=== PATIENT | female | born 1960 | race Caucasian/White ===

== ENCOUNTER 2019-05-22 07:48 | Day surgery (SDC) | payer OTHER ==
[2019-05-19 16:35] VITALS: BMI 26.2
[2019-05-22 08:08] VITALS: TEMP 98.4
[2019-05-22] MEDS ORDERED: PROPOFOL 20 ML ONE ×2 (09:03)
[2019-05-22 09:24] VITALS: BP 131/85; PULSE 59
== END 2019-05-22 09:20 | disposition home or self-care (01) ==
LOC: FASU-ENDO 07:48
PROVIDERS: ATTEND Internal Medicine Gastroenterology
PROC: 0DJD8ZZ Inspection of Lower Intestinal Tract, Via Natural or Artificial Opening Endoscopic (ICD-10-PCS; principal; 2019-05-22 08:30)
DX: Z12.11 Encounter for screening for malignant neoplasm of colon (principal); Z80.0 Family history of malignant neoplasm of digestive organs; K64.8 Other hemorrhoids